=== PATIENT | male | born 1985 | race Caucasian/White ===

== ENCOUNTER 2024-06-19 20:02 | Emergency (ER) | payer OTHER, SELFPAY ==
[2024-06-19 20:04] VITALS: BP 140/84; PULSE 99; RESP 18; TEMP 36.9; O2SAT 99; BMI 33.0
--- NOTE | 2024-06-19 20:25 | RAD_ITS ---
PROCEDURE: KNEE 4 OR MORE VIEWS 06/19/2024 REASON FOR EXAM: PAIN, DECREASED ROM, DIFFICULTY AMBULATING TECHNIQUE: Four views of the left knee COMPARISON: None FINDINGS: See impression RAD/Knee 4 or More Views IMPRESSION: Negative for acute fracture or malalignment. Mild tricompartmental osteoarthri tis, greatest in the lateral compartment including joint space narrowing and small marginal osteophytes. Small knee joint effusio n. Reading Location: [facility]
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
--- NOTE | 2024-06-20 00:55 | ED.RN ---
See downtime charting
== END 2024-06-19 22:42 | disposition home or self-care (01) ==
LOC: ED 06-20 00:49
PROVIDERS: Emergency Provider Emergency Medicine; PCP Family Medicine; Visit Provider Emergency Medicine
DX: M25.462 Effusion, left knee (principal)
CPT/HCPCS: 73564; 99282